=== PATIENT | male | born 1970 | race Caucasian/White ===

== ENCOUNTER 2017-09-20 16:39 | Emergency (ER) | payer BC ==
[~2017-09-20] VITALS: Ht 193 cm; Wt 132.8 kg
[~2017-09-20 16:39] MED LIST: HYDROCHLOROTHIA25 MG; LISINOPRIL-HCT1 EAC3 PO; LISINOPRIL40 MG
[2017-09-20 17:48] LABS: HEMATOCRIT 40.3 % (38.0-50.0); HEMOGLOBIN 14.5 G/DL (12.5-16.6); MCH 31.1 PG (29.0-34.0); MCV 86.5 FL (86-99); NRBC (%) 0.2 /100 WBC (0-0); PLATELET COUNT 198 K/uL (156-360); RBC DIS.WIDTH-SD 40.9 % (39-53); RED BLOOD COUNT 4.66 M/uL (4.00-5.50); WHITE BLOOD COUNT 11.5 K/uL (4.1-10.2)
[2017-09-20 17:58] LABS: ALBUMIN 4.5 g/dL (3.2-4.8); CHLORIDE 97 mEq/L (99-109); POTASSIUM 3.8 mEq/L (3.7-5.4); SODIUM 132 mEq/L (136-147)
[2017-09-20 18:00] LABS: GLUCOSE 121 mg/dL (70-99); TOTAL PROTEIN 8.3 g/dL (6.4-8.3)
[2017-09-20 18:02] LABS: TOTAL BILIRUBIN 0.6 mg/dL (0.0-1.0)
[2017-09-20 18:04] LABS: ALKALINE PHOSPHATASE 100 IU/L (3-129); CREATININE 0.9 mg/dL (0.6-1.3); GFR ESTIMATE (CALCULATED) > 59 mL/min/ (58.99-99999)
[2017-09-20 18:05] LABS: UREA NITROGEN (BUN) 6 mg/dL (9-23)
[2017-09-20 18:06] LABS: AST (GOT) 39 IU/L (2-34)
[2017-09-20 18:07] LABS: ALT (GPT) 29 IU/L (3-49)
[2017-09-20] MEDS ORDERED: KEFLEX500 MG PO (19:21)
[2017-09-20] MEDS ORDERED: PERCOCET 5/31 TABLET PO (19:21)
[2017-09-20 19:39] VITALS: BP 143/74
== END 2017-09-20 19:40 | disposition home or self-care (01) ==
LOC: EME 16:39
PROVIDERS: Nurse Practitioner Family
DX: L03.115 Cellulitis of right lower limb (principal); I10 Essential (primary) hypertension; Z87.81 Personal history of (healed) traumatic fracture; Z90.49 Acquired absence of other specified parts of digestive tract
CPT/HCPCS: 80053; 83605; 85027; 87040; 93971; 99281; 99284